=== PATIENT | female | born 2000 | race Caucasian/White ===

== ENCOUNTER 2020-11-09 20:51 | Emergency (ER) | payer OTHER ==
[2020-11-09] MEDS ORDERED: NORCO 5-325 TA1 EACH PO (23:48)
[2020-11-09] MEDS ORDERED: IBUPROFEN800 MG PO (23:48)
== END 2020-11-10 00:05 | disposition home or self-care (01) ==
LOC: FER 20:51
DX: S83.91XA Sprain of unspecified site of right knee, initial encounter (principal); X50.1XXA Overexertion from prolonged static or awkward postures, initial encounter
CPT/HCPCS: 73564